=== PATIENT | female | born 1935 | race Caucasian/White ===

== ENCOUNTER → 2017-08-12 | Outpatient (CLI) | payer MEDICARE, BC ==
[2014-02-01 12:57] VITALS: BP 170/65
[~2017-08-12] MED LIST: BIOTIN5 MG; BIOTIN5 MG PO; BRILINTA90 MG PO; BYSTOLIC5 MG PO; CALCIUM + D 6001 TA1 PO; FLORINEF ACETA0.1 MG PO; GOOD SENSE ASPI81 M1 PO; LIPITOR10 MG PO; LISINOPRIL1 POW; MULTI VITAMINS1 TAB PO; NITROSTAT0.4 MG/TAB SL; OMEGA 31000 MG PO; OMEGA-31 SGL PO; RYTHMOL150 MG PO; SOTALOL PO; VITAMIN C500 MG PO
[2017-08-12 09:04] LABS: HEMATOCRIT 37.6 % (37.0-47.0); HEMOGLOBIN 12.1 g/dL (12.5-16.0); MEAN CELL VOLUME 96 fl (78-100); MEAN CORPUSCULAR HEMOGLOBIN 31 pg (27-31); MEAN CORPUSCULAR HGB CONC 32 g/dL (33-37); MEAN PLATELET VOLUME 9.3 fl (7.4-10.4); PLATELET COUNT 278 K/mm3 (130-400); RED BLOOD COUNT 3.93 M/mm3 (4.10-5.30); RED CELL DISTRIBUTION WIDTH 12.4 % (11.5-14.5); WHITE BLOOD COUNT 6.2 K/mm3 (4.8-10.8)
[2017-08-12 09:18] LABS: BUN/CREATININE RATIO 28.5 (6.0-26.0); CALCIUM 9.7 mg/dL (8.4-10.2); POTASSIUM 4.1 mmol/L (3.6-5.0)
[2017-08-12 09:27] LABS: LYMPHOCYTE 29 % (20-51); NEUTROPHILS 58 % (42-75)
[2017-08-12 09:28] LABS: MONOCYTE 9 % (3-10)
== END ==
LOC: LAB 08:41
PROVIDERS: Family Medicine
DX: E78.2 Mixed hyperlipidemia (principal)

== ENCOUNTER 2021-05-13 15:08 | Inpatient (IN) | payer MEDICARE, BC ==
[~2021-05-13] VITALS: Ht 160 cm; Wt 48.1 kg
[~2021-05-13 15:08] MED LIST changes: +CEFDINIR300 MG PO; +COZAAR25 M1 PO; +TOPROL XL 25MG25 MG PO
[2021-05-13 15:35] VITALS: BP 166/67
[2021-05-13 15:51] VITALS: BP 166/67
[2021-05-13 17:05] VITALS: BP 150/65
[2021-05-13 22:12] VITALS: BP 160/75
[2021-05-14 06:03] VITALS: BP 171/72
[2021-05-14 07:11] LABS: BASO # 0.02 K/mm3 (0.02-0.10); EOS # 0.18 K/mm3 (0.04-0.40); EOS % 1.8 % (1.0-5.0); HEMATOCRIT 31.9 % (37.0-47.0); HEMOGLOBIN 10.2 g/dL (12.5-16.0); LYMPH# 1.21 K/mm3 (1.50-4.00); MEAN CELL VOLUME 99 fl (78-100); MEAN CORPUSCULAR HEMOGLOBIN 32 pg (27-31); MEAN CORPUSCULAR HGB CONC 32 g/dL (33-37); MEAN PLATELET VOLUME 9.2 fl (7.4-10.4); MONO # 0.78 K/mm3 (0.20-0.80); NEU # 7.88 K/mm3 (1.40-6.50); PLATELET COUNT 159 K/mm3 (130-400); RED BLOOD COUNT 3.24 M/mm3 (4.10-5.30); RED CELL DISTRIBUTION WIDTH 13.3 % (11.5-14.5); WHITE BLOOD COUNT 10.1 K/mm3 (4.8-10.8)
[2021-05-14 08:20] LABS: URINE APPEARANCE CLEAR; URINE COLOR YELLOW
[2021-05-14 08:21] LABS: URINE BILIRUBIN NEGATIVE (NEGATIVE); URINE BLOOD 50 ery/uL (NEGATIVE); URINE GLUCOSE NEGATIVE (NEGATIVE); URINE KETONE NEGATIVE (NEGATIVE); URINE LEUKOCYTE ESTERASE TRACE (NEGATIVE); URINE MUCUS PRESENT (NOT PRESENT); URINE NITRATE NEGATIVE (NEGATIVE); URINE PROTEIN(semi-quant) TRACE (NEGATIVE); URINE UROBILINOGEN NORMAL (NORMAL)
[2021-05-14 10:10] VITALS: BP 128/67
== END 2021-05-14 10:47 | disposition home or self-care (01) | DRG 690 ==
LOC: MED/SURG 15:08
PROVIDERS: ADMIT Family Medicine
DX: N39.0 Urinary tract infection, site not specified (principal); I10 Essential (primary) hypertension; E78.5 Hyperlipidemia, unspecified; I25.10 Atherosclerotic heart disease of native coronary artery without angina pectoris; R41.0 Disorientation, unspecified; R05.9 Cough, unspecified; Z95.5 Presence of coronary angioplasty implant and graft; Z90.710 Acquired absence of both cervix and uterus; Z79.82 Long term (current) use of aspirin
CPT/HCPCS: J0696; J1650; J7030

== ENCOUNTER → 2021-05-19 | Outpatient (CLI) | payer MEDICARE, BC ==
[2021-05-19 10:33] LABS: BASO # 0.06 K/mm3 (0.02-0.10); EOS # 0.09 K/mm3 (0.04-0.40); HEMATOCRIT 39.9 % (37.0-47.0); HEMOGLOBIN 12.7 g/dL (12.5-16.0); LYMPH# 0.98 K/mm3 (1.50-4.00); MEAN CELL VOLUME 97 fl (78-100); MEAN CORPUSCULAR HEMOGLOBIN 31 pg (27-31); MEAN CORPUSCULAR HGB CONC 32 g/dL (33-37); MEAN PLATELET VOLUME 9.2 fl (7.4-10.4); MONO # 0.77 K/mm3 (0.20-0.80); NEU # 6.61 K/mm3 (1.40-6.50); PLATELET COUNT 318 K/mm3 (130-400); RED BLOOD COUNT 4.11 M/mm3 (4.10-5.30); RED CELL DISTRIBUTION WIDTH 12.4 % (11.5-14.5); WHITE BLOOD COUNT 8.6 K/mm3 (4.8-10.8)
[2021-05-19 11:40] LABS: URINE APPEARANCE HAZY; URINE BILIRUBIN NEGATIVE (NEGATIVE); URINE BLOOD TRACE (NEGATIVE); URINE COLOR DK YELLOW; URINE GLUCOSE NEGATIVE (NEGATIVE); URINE KETONE NEGATIVE (NEGATIVE); URINE LEUKOCYTE ESTERASE TRACE (NEGATIVE); URINE NITRATE NEGATIVE (NEGATIVE); URINE PROTEIN(semi-quant) TRACE (NEGATIVE); URINE UROBILINOGEN NORMAL (NORMAL)
[2021-05-19 22:45] LABS: FOLATE (FOLIC ACID) >20.0 ng/mL (2.0-20.0)
== END ==
LOC: LAB 10:00
PROVIDERS: Family Medicine
DX: N39.0 Urinary tract infection, site not specified (principal); D64.9 Anemia, unspecified

== ENCOUNTER → 2021-06-20 | Outpatient (CLI) | payer MEDICARE, BC ==
[2021-06-20 08:56] LABS: ALBUMIN 3.9 g/dL (3.4-4.8); POTASSIUM 4.1 mmol/L (3.5-5.1)
[2021-06-20 08:57] LABS: CALCIUM 9.8 mg/dL (8.3-10.5)
[2021-06-20 08:58] LABS: TOTAL PROTEIN 6.7 g/dL (6.2-8.1)
[2021-06-20 09:00] LABS: TOTAL BILIRUBIN 0.5 mg/dL (0.2-1.2)
[2021-06-21 00:03] LABS: FOLATE (FOLIC ACID) 17.5 ng/mL (2.0-20.0)
== END ==
LOC: LAB 08:14
PROVIDERS: Family Medicine
DX: Z00.00 Encounter for general adult medical examination without abnormal findings (principal); I10 Essential (primary) hypertension; H91.93 Unspecified hearing loss, bilateral

== ENCOUNTER → 2021-12-18 | Outpatient (CLI) | payer MEDICARE, BC ==
[2021-12-18 10:00] LABS: POTASSIUM 4.2 mmol/L (3.5-5.1)
[2021-12-18 10:01] LABS: CALCIUM 9.8 mg/dL (8.3-10.5)
== END ==
LOC: LAB 09:06
PROVIDERS: Family Medicine
DX: I10 Essential (primary) hypertension (principal)

== ENCOUNTER → 2021-12-27 | Outpatient (CLI) | payer MEDICARE, BC ==
[~2021-12-27] VITALS: Ht 160 cm; Wt 48.1 kg
[2021-12-27 16:12] VITALS: BP 142/70
[2021-12-27 17:05] VITALS: BP 128/71
== END ==
LOC: AMSURD 15:00
DX: U07.1 COVID-19 (principal); N18.30 Chronic kidney disease, stage 3 unspecified; I25.10 Atherosclerotic heart disease of native coronary artery without angina pectoris
CPT/HCPCS: M0222

== ENCOUNTER → 2021-12-27 | Outpatient (CLI) | payer MEDICARE, BC | LOC: LAB 13:36 | DX: U07.1 COVID-19 (principal) ==

== ENCOUNTER 2022-07-09 08:58 | Outpatient (RCR) | payer MEDICARE, BC | END 2022-08-03 | disposition home or self-care (01) | LOC: PT | DX: M54.6 Pain in thoracic spine (principal) ==

== ENCOUNTER 2023-10-07 12:40 | Emergency (ER) | payer MEDICARE, BC ==
[~2023-10-07 12:40] MED LIST changes: +fentaNYL 100 MCG/2 ML VIAL IV ONE
[2023-10-07] MEDS ORDERED: Iodixanol-320 100 ML BOTTLE IV ONE (14:10)
[2023-10-07] MEDS ORDERED: NS 60 ML IV ONE (14:10)
[2023-11-25 04:59] LABS: ALBUMIN 3.8 g/dL (3.4-4.8); ALT/SGPT 25 U/L (0-55); AST-SGOT 23 U/L (5-34); CALCIUM 9.7 mg/dL (8.3-10.5); CARBON DIOXIDE 23 mmol/L (23-31); GLUCOSE 99 mg/dL (65-105); SODIUM 143 mmol/L (136-145); TOTAL BILIRUBIN 0.6 mg/dL (0.2-1.2); TOTAL PROTEIN 6.2 g/dL (6.2-8.1); TROPONIN-I < 0.030 ng/mL (0.00-0.033)
[2023-11-25 05:15] LABS: BASO # 0.02 K/mm3 (0.02-0.10); EOS # 0.02 K/mm3 (0.04-0.40); EOS % 0.1 % (1.0-5.0); HEMATOCRIT 38.9 % (37.0-47.0); HEMOGLOBIN 12.5 g/dL (12.5-16.0); MEAN CELL VOLUME 98 fl (78-100); MEAN CORPUSCULAR HEMOGLOBIN 31 pg (27-31); MEAN CORPUSCULAR HGB CONC 32 g/dL (33-37); MEAN PLATELET VOLUME 9.4 fl (7.4-10.4); MONO # 1.17 K/mm3 (0.20-0.80); NEU # 11.92 K/mm3 (1.40-6.50); PLATELET COUNT 276 K/mm3 (130-400); RED BLOOD COUNT 3.99 M/mm3 (4.10-5.30); RED CELL DISTRIBUTION WIDTH 12.4 % (11.5-14.5); WHITE BLOOD COUNT 14.1 K/mm3 (4.8-10.8)
[2023-11-25 05:16] LABS: D-DIMER 32.91 mg/L FEU (0.15-0.50)
== END 2023-10-07 18:20 | disposition short-term general hospital (02) ==
LOC: ED 12:40
PROVIDERS: Physician Assistant
DX: S32.10XA Unspecified fracture of sacrum, initial encounter for closed fracture (principal); M25.552 Pain in left hip; M25.551 Pain in right hip; I48.0 Paroxysmal atrial fibrillation; W19.XXXA Unspecified fall, initial encounter
CPT/HCPCS: J3010; Q9967

== ENCOUNTER 2023-10-11 11:22 | Inpatient (IN) | payer MEDICARE, BC ==
[~2023-10-11] VITALS: Ht 162.6 cm; Wt 44.8 kg
[~2023-10-11 11:22] MED LIST changes: -fentaNYL 100 MCG/2 ML VIAL IV ONE
[2023-10-15] MEDS ORDERED: Bisacodyl 5 MG TAB PO PRN (03:15)
[2023-10-15] MEDS ORDERED: fentaNYL 100 MCG/2 ML VIAL IV PRN (03:15)
[2023-10-15] MEDS ORDERED: Acetaminophen 500 MG TAB PO PRN (03:15)
[2023-10-15] MEDS ORDERED: Polyethylene Glycol 3350 Powder 17 GM PACKET PO PRN (03:15)
[2023-10-15] MEDS ORDERED: Melatonin 3 MG TAB PO PRN (03:15)
[2023-10-15] MEDS ORDERED: Docusate Sodium 100 MG CAP PO PRN (03:15)
[2023-10-15] MEDS ORDERED: AMOXICILLIN AND1 TA2 PO (04:27)
[2023-10-15] MEDS ORDERED: ASPIRIN E.C. 8181 MG (04:28)
[2023-10-15] MEDS ORDERED: BETAPACE AF80 M1 PO (04:28)
[2023-10-15] MEDS ORDERED: FISH OIL1 IU PO (04:29)
[2023-10-15] MEDS ORDERED: CALCIUM 600 MG-1 TAB PO (04:29)
[2023-10-15] MEDS ORDERED: ATORVASTATIN CA10 MG PO (04:29)
[2023-10-15] MEDS ORDERED: WOMEN'S DAILY F1 TAB PO (04:30)
[2023-10-15] MEDS ORDERED: NATURE'S BLE1000 MCG PO (04:31)
[2023-10-15] MEDS ORDERED: MELATIN 3 MG-11 TAB PO (04:32)
[2023-10-15] MEDS ORDERED: VITAMIN C500 MG (04:32)
[2023-10-15] MEDS ORDERED: LIDOCAINE PAIN1 EACH TP (04:33)
[2023-10-15] MEDS ORDERED: ADVIL LIQUI-GE200 M1 PO (04:33)
[2023-10-15 05:39] VITALS: BP 205/81
[2023-10-15 06:30] VITALS: BP 166/76
[2023-10-15] MEDS ORDERED: Ascorbic Acid 500 MG TAB PO SCH (08:00)
[2023-10-15] MEDS ORDERED: Losartan 50 MG TAB PO SCH ×2 (09:00→21:00)
[2023-10-15] MEDS ORDERED: Omega-3 Fatty Acid Esters 1,000 MG CAP PO SCH (09:00)
[2023-10-15] MEDS ORDERED: Lidocaine 4% Topical Patch TP SCH (09:00)
[2023-10-15] MEDS ORDERED: Calcium Carb/Vit D3 500 mg-200 Units TAB PO SCH (09:00)
[2023-10-15] MEDS ORDERED: Ibuprofen 200 MG TAB PO SCH (09:00)
[2023-10-15] MEDS ORDERED: Multivitamin TAB PO SCH (12:00)
[2023-10-15] MEDS ORDERED: Acetaminophen 500 MG TAB PO SCH (13:00)
[2023-10-15 14:04] VITALS: BP 121/66
[2023-10-15 18:21] VITALS: BP 184/67
[2023-10-15] MEDS ORDERED: Polyethylene Glycol 3350 Powder 17 GM PACKET PO SCH (21:00)
[2023-10-16 04:30] VITALS: BP 216/93
[2023-10-16] MEDS ORDERED: cloNIDine 0.1 MG TAB PO ONE (04:30)
[2023-10-16] MEDS ORDERED: fentaNYL 100 MCG/2 ML VIAL IM ONE (04:30)
[2023-10-16] MEDS ORDERED: hydrALAZINE 10 MG TAB PO ONE (04:45)
[2023-10-16 05:23] VITALS: BP 171/78
[2023-10-16 05:54] VITALS: BP 179/72
[2023-10-16 07:09] LABS: BASO # 0.07 K/mm3 (0.02-0.10); EOS # 0.28 K/mm3 (0.04-0.40); EOS % 3.3 % (1.0-5.0); HEMOGLOBIN 11.1 g/dL (12.5-16.0); LYMPH# 1.27 K/mm3 (1.50-4.00); MEAN CELL VOLUME 98 fl (78-100); MEAN CORPUSCULAR HEMOGLOBIN 32 pg (27-31); MEAN CORPUSCULAR HGB CONC 33 g/dL (33-37); MEAN PLATELET VOLUME 8.8 fl (7.4-10.4); MONO # 0.78 K/mm3 (0.20-0.80); NEU # 6.15 K/mm3 (1.40-6.50); PLATELET COUNT 318 K/mm3 (130-400); RED BLOOD COUNT 3.48 M/mm3 (4.10-5.30); RED CELL DISTRIBUTION WIDTH 12.7 % (11.5-14.5); WHITE BLOOD COUNT 8.6 K/mm3 (4.8-10.8)
[2023-10-16 07:51] LABS: ALBUMIN 3.1 g/dL (3.4-4.8)
[2023-10-16 07:53] LABS: CALCIUM 8.6 mg/dL (8.3-10.5)
[2023-10-16 07:54] LABS: TOTAL PROTEIN 5.4 g/dL (6.2-8.1)
[2023-10-16 07:56] LABS: TOTAL BILIRUBIN 0.5 mg/dL (0.2-1.2)
[2023-10-16 08:29] VITALS: BP 119/69
[2023-10-16] MEDS ORDERED: Ketorolac 10 MG TAB PO PRN (10:00)
[2023-10-16] MEDS ORDERED: traMADol 50 MG TAB PO PRN (10:15)
[2023-10-16 17:13] VITALS: BP 149/79
[2023-10-17] MEDS ORDERED: traMADol 50 MG TAB PO SCH
[2023-10-17 04:30] VITALS: BP 197/73
[2023-10-17 04:40] VITALS: BP 203/99
[2023-10-17] MEDS ORDERED: fentaNYL 100 MCG/2 ML VIAL IM ONE (04:45)
[2023-10-17 05:46] VITALS: BP 177/70
[2023-10-17 15:12] VITALS: BP 157/78
[2023-10-17 17:09] VITALS: BP 164/78
[2023-10-17 20:27] VITALS: BP 178/78
[2023-10-18 06:02] VITALS: BP 190/96
[2023-10-18 06:06] VITALS: BP 180/82
[2023-10-18 17:58] VITALS: BP 125/74
[2023-10-18] MEDS ORDERED: traMADol 50 MG TAB PO SCH (18:00)
[2023-10-19] MEDS ORDERED: Polyethylene Glycol 3350 Powder 17 GM PACKET PO PRN (04:40)
[2023-10-19] MEDS ORDERED: Docusate Sodium 100 MG CAP PO SCH ×2 (04:43→21:00)
[2023-10-19 06:25] VITALS: BP 194/76
[2023-10-19] MEDS ORDERED: Losartan 50 MG TAB PO SCH (09:00)
[2023-10-19 11:32] LABS: URINE APPEARANCE CLOUDY (CLEAR); URINE BILIRUBIN NEGATIVE (NEGATIVE); URINE COLOR YELLOW (YELLOW); URINE GLUCOSE NEGATIVE (NEGATIVE); URINE KETONE NEGATIVE (NEGATIVE); URINE PROTEIN(semi-quant) 2+ (NEGATIVE)
[2023-10-19 11:33] LABS: URINE BLOOD 3+ (NEGATIVE); URINE LEUKOCYTE ESTERASE 3+ (NEGATIVE); URINE NITRATE NEGATIVE (NEGATIVE); URINE WBC >50 /hpf (0-3)
[2023-10-19] MEDS ORDERED: cefTRIAXone 1 G in Water For Injection,Sterile 10 ML IV SCH (15:45)
[2023-10-19 18:00] VITALS: BP 130/70
[2023-10-20 04:38] VITALS: BP 190/85
[2023-10-20 18:04] VITALS: BP 188/77
[2023-10-21] MEDS ORDERED: fentaNYL 100 MCG/2 ML VIAL IV ONE (04:00)
[2023-10-21 04:45] VITALS: BP 208/94
[2023-10-21] MEDS ORDERED: cloNIDine 0.1 MG TAB PO ONE (05:00)
[2023-10-21 05:44] VITALS: BP 184/74
[2023-10-21 17:35] VITALS: BP 125/61
[2023-10-22 03:16] VITALS: BP 213/101
[2023-10-22] MEDS ORDERED: hydrALAZINE 10 MG TAB PO ONE (03:30)
[2023-10-22] MEDS ORDERED: fentaNYL 100 MCG/2 ML VIAL IV ONE (04:00)
[2023-10-22 05:47] VITALS: BP 189/92
[2023-10-22 07:10] LABS: BASO # 0.04 K/mm3 (0.02-0.10); EOS # 0.41 K/mm3 (0.04-0.40); EOS % 4.4 % (1.0-5.0); HEMATOCRIT 32.9 % (37.0-47.0); HEMOGLOBIN 10.6 g/dL (12.5-16.0); LYMPH# 1.65 K/mm3 (1.50-4.00); MEAN CELL VOLUME 99 fl (78-100); MEAN CORPUSCULAR HEMOGLOBIN 32 pg (27-31); MEAN CORPUSCULAR HGB CONC 32 g/dL (33-37); MEAN PLATELET VOLUME 8.9 fl (7.4-10.4); MONO # 1.09 K/mm3 (0.20-0.80); NEU # 6.13 K/mm3 (1.40-6.50); PLATELET COUNT 413 K/mm3 (130-400); RED BLOOD COUNT 3.32 M/mm3 (4.10-5.30); RED CELL DISTRIBUTION WIDTH 13.5 % (11.5-14.5); WHITE BLOOD COUNT 9.4 K/mm3 (4.8-10.8)
[2023-10-22 07:16] LABS: ALBUMIN 3.2 g/dL (3.4-4.8)
[2023-10-22 07:17] LABS: CALCIUM 8.9 mg/dL (8.3-10.5)
[2023-10-22 07:18] LABS: TOTAL PROTEIN 5.8 g/dL (6.2-8.1)
[2023-10-22 07:20] LABS: TOTAL BILIRUBIN 0.2 mg/dL (0.2-1.2)
[2023-10-22 13:46] VITALS: BP 156/71
[2023-10-22 14:18] LABS: PH-URINE 5.5 (5.0 - 8.0); URINE APPEARANCE SLIGHTLY CLOUDY (CLEAR); URINE BILIRUBIN NEGATIVE (NEGATIVE); URINE BLOOD NEGATIVE (NEGATIVE); URINE COLOR YELLOW (YELLOW); URINE GLUCOSE NEGATIVE (NEGATIVE); URINE KETONE NEGATIVE (NEGATIVE); URINE LEUKOCYTE ESTERASE TRACE (NEGATIVE); URINE NITRATE NEGATIVE (NEGATIVE); URINE PROTEIN(semi-quant) NEGATIVE (NEGATIVE); URINE WBC 31-50 /hpf (0-3)
[2023-10-22 17:58] VITALS: BP 171/83
[2023-10-23 05:23] VITALS: BP 158/72
[2023-10-23 16:58] VITALS: BP 138/68
[2023-10-23] MEDS ORDERED: Melatonin 3 MG TAB PO SCH (21:00)
[2023-10-24 05:23] VITALS: BP 171/77
[2023-10-24 17:40] VITALS: BP 171/73
[2023-10-25 05:30] VITALS: BP 122/61
[2023-10-25 16:16] VITALS: BP 120/64
[2023-10-25] MEDS ORDERED: Melatonin 3 MG TAB PO SCH (21:00)
[2023-10-26 05:35] VITALS: BP 147/74
[2023-10-26 16:56] VITALS: BP 126/65
[2023-10-27 06:01] VITALS: BP 178/80
[2023-10-27 18:00] VITALS: BP 127/65
[2023-10-27] MEDS ORDERED: Melatonin 3 MG TAB PO SCH (18:00)
[2023-10-27 18:38] VITALS: BP 192/64
[2023-10-28 06:05] VITALS: BP 133/66
[2023-10-28 18:09] VITALS: BP 106/61
[2023-10-29 05:52] VITALS: BP 185/75
[2023-10-29 07:37] LABS: BASO # 0.03 K/mm3 (0.02-0.10); EOS % 2.9 % (1.0-5.0); HEMATOCRIT 30.9 % (37.0-47.0); HEMOGLOBIN 10.3 g/dL (12.5-16.0); LYMPH# 0.85 K/mm3 (1.50-4.00); MEAN CELL VOLUME 97 fl (78-100); MEAN CORPUSCULAR HEMOGLOBIN 32 pg (27-31); MEAN CORPUSCULAR HGB CONC 33 g/dL (33-37); MEAN PLATELET VOLUME 8.9 fl (7.4-10.4); MONO # 1.28 K/mm3 (0.20-0.80); NEU # 7.55 K/mm3 (1.40-6.50); PLATELET COUNT 376 K/mm3 (130-400); RED CELL DISTRIBUTION WIDTH 13.9 % (11.5-14.5); WHITE BLOOD COUNT 10.4 K/mm3 (4.8-10.8)
[2023-10-29 07:39] LABS: ALBUMIN 2.9 g/dL (3.4-4.8)
[2023-10-29 07:41] LABS: CALCIUM 8.8 mg/dL (8.3-10.5)
[2023-10-29 07:42] LABS: TOTAL PROTEIN 5.7 g/dL (6.2-8.1)
[2023-10-29 07:44] LABS: TOTAL BILIRUBIN 0.3 mg/dL (0.2-1.2)
[2023-10-29] MEDS ORDERED: tiZANidine 4 MG TABLET PO PRN (16:15)
[2023-10-29] MEDS ORDERED: Acetaminophen 500 MG TAB PO SCH (17:00)
[2023-10-29 17:39] VITALS: BP 138/68
[2023-10-29] MEDS ORDERED: traMADol 50 MG TAB PO SCH (18:00)
[2023-10-30 06:01] VITALS: BP 195/78
[2023-10-30] MEDS ORDERED: Meloxicam 7.5 MG TAB PO SCH (09:00)
[2023-10-30 15:44] LABS: HEMATOCRIT 30.7 % (37.0-47.0); HEMOGLOBIN 9.9 g/dL (12.5-16.0)
[2023-10-30 17:52] VITALS: BP 188/84
[2023-10-30] MEDS ORDERED: Ferrous Sulfate 325 MG TAB PO SCH (18:00)
[2023-10-31 05:55] VITALS: BP 206/81
[2023-10-31 06:59] LABS: BASO # 0.04 K/mm3 (0.02-0.10); EOS # 0.47 K/mm3 (0.04-0.40); EOS % 4.9 % (1.0-5.0); HEMATOCRIT 31.9 % (37.0-47.0); HEMOGLOBIN 10.2 g/dL (12.5-16.0); LYMPH# 1.18 K/mm3 (1.50-4.00); MEAN CELL VOLUME 99 fl (78-100); MEAN CORPUSCULAR HEMOGLOBIN 32 pg (27-31); MEAN CORPUSCULAR HGB CONC 32 g/dL (33-37); MEAN PLATELET VOLUME 8.8 fl (7.4-10.4); MONO # 1.12 K/mm3 (0.20-0.80); NEU # 6.48 K/mm3 (1.40-6.50); PLATELET COUNT 383 K/mm3 (130-400); RED BLOOD COUNT 3.22 M/mm3 (4.10-5.30); RED CELL DISTRIBUTION WIDTH 13.9 % (11.5-14.5); WHITE BLOOD COUNT 9.7 K/mm3 (4.8-10.8)
[2023-10-31 18:00] VITALS: BP 192/68
[2023-11-01 05:40] VITALS: BP 187/90
[2023-11-01 17:45] VITALS: BP 157/84
[2023-11-01 18:23] LABS: URINE APPEARANCE CLEAR (CLEAR); URINE COLOR YELLOW (YELLOW)
[2023-11-01 18:24] LABS: URINE BILIRUBIN NEGATIVE (NEGATIVE); URINE BLOOD 2+ (NEGATIVE); URINE GLUCOSE NEGATIVE (NEGATIVE); URINE KETONE NEGATIVE (NEGATIVE); URINE NITRATE NEGATIVE (NEGATIVE); URINE PROTEIN(semi-quant) NEGATIVE (NEGATIVE)
[2023-11-01 18:25] LABS: URINE LEUKOCYTE ESTERASE 2+ (NEGATIVE)
[2023-11-01] MEDS ORDERED: tiZANidine 4 MG TABLET PO SCH (21:00)
[2023-11-02 05:54] VITALS: BP 195/77; BP_SYST 194
[2023-11-02] MEDS ORDERED: Nitrofurantoin (Mono/Macro) 100 MG CAPSULE PO SCH (08:00)
[2023-11-02 17:14] VITALS: BP 158/71
[2023-11-03 06:19] VITALS: BP 196/73
[2023-11-03 17:06] VITALS: BP 173/87
[2023-11-04 05:28] VITALS: BP 194/95
[2023-11-04] MEDS ORDERED: amLODIPine 5 MG TAB PO SCH (06:51)
[2023-11-04] MEDS ORDERED: Melatonin 3 MG TAB PO PRN (10:43)
[2023-11-04 11:15] VITALS: BP 151/67
[2023-11-04 17:11] VITALS: BP 186/99
[2023-11-04] MEDS ORDERED: hydrALAZINE 10 MG TAB PO PRN (18:30)
[2023-11-05 05:49] LABS: BASO # 0.04 K/mm3 (0.02-0.10); EOS # 0.42 K/mm3 (0.04-0.40); EOS % 3.4 % (1.0-5.0); HEMOGLOBIN 10.6 g/dL (12.5-16.0); LYMPH# 1.12 K/mm3 (1.50-4.00); MEAN CELL VOLUME 99 fl (78-100); MEAN CORPUSCULAR HEMOGLOBIN 32 pg (27-31); MEAN CORPUSCULAR HGB CONC 32 g/dL (33-37); MEAN PLATELET VOLUME 8.6 fl (7.4-10.4); MONO # 1.31 K/mm3 (0.20-0.80); NEU # 9.49 K/mm3 (1.40-6.50); PLATELET COUNT 443 K/mm3 (130-400); RED BLOOD COUNT 3.35 M/mm3 (4.10-5.30); RED CELL DISTRIBUTION WIDTH 13.6 % (11.5-14.5); WHITE BLOOD COUNT 12.5 K/mm3 (4.8-10.8)
[2023-11-05 06:03] VITALS: BP 189/78
[2023-11-05 08:45] VITALS: BP 113/60
[2023-11-05 14:05] VITALS: BP 150/79
[2023-11-05 17:18] VITALS: BP 134/73
[2023-11-05 22:12] VITALS: BP 137/66
[2023-11-06] VITALS (8 sets, daily range): BP systolic 104–193; BP diastolic 59–83
[2023-11-06 13:40] LABS: ALBUMIN 3.4 g/dL (3.4-4.8)
[2023-11-06 13:43] LABS: TOTAL PROTEIN 6.2 g/dL (6.2-8.1)
[2023-11-06 13:45] LABS: TOTAL BILIRUBIN 0.3 mg/dL (0.2-1.2)
[2023-11-06 14:06] LABS: BASO # 0.05 K/mm3 (0.02-0.10); EOS # 0.27 K/mm3 (0.04-0.40); EOS % 2.3 % (1.0-5.0); HEMATOCRIT 32.7 % (37.0-47.0); HEMOGLOBIN 10.4 g/dL (12.5-16.0); LYMPH# 1.07 K/mm3 (1.50-4.00); MEAN CELL VOLUME 99 fl (78-100); MEAN CORPUSCULAR HEMOGLOBIN 32 pg (27-31); MEAN CORPUSCULAR HGB CONC 32 g/dL (33-37); MEAN PLATELET VOLUME 8.8 fl (7.4-10.4); NEU # 8.87 K/mm3 (1.40-6.50); PLATELET COUNT 485 K/mm3 (130-400); RED BLOOD COUNT 3.29 M/mm3 (4.10-5.30); RED CELL DISTRIBUTION WIDTH 13.7 % (11.5-14.5); WHITE BLOOD COUNT 11.9 K/mm3 (4.8-10.8)
[2023-11-06] MEDS ORDERED: tiZANidine 4 MG TABLET PO PRN (14:45)
[2023-11-07 02:07] VITALS: BP 134/83
[2023-11-07 05:33] VITALS: BP 167/78
[2023-11-07 10:32] VITALS: BP 116/66
[2023-11-07 14:15] VITALS: BP 149/74
[2023-11-07 18:01] VITALS: BP 126/62
[2023-11-07 21:24] VITALS: BP 154/74
[2023-11-08 02:23] VITALS: BP 152/65
[2023-11-08 05:27] VITALS: BP 185/78
[2023-11-08 10:12] VITALS: BP 103/61
[2023-11-08 14:32] VITALS: BP 160/80
[2023-11-08 18:00] VITALS: BP 131/72
[2023-11-08 21:57] VITALS: BP 165/75
[2023-11-09 01:14] VITALS: BP 149/77
[2023-11-09 06:13] VITALS: BP 170/72; BP_SYST 178
[2023-11-09 09:46] VITALS: BP 130/72
[2023-11-09 14:06] VITALS: BP 161/79
[2023-11-09 18:16] VITALS: BP 135/65
[2023-11-09 22:52] VITALS: BP 151/75
[2023-11-10 02:34] VITALS: BP 113/70; BP 147/65
[2023-11-10 06:23] VITALS: BP 152/73
[2023-11-10 10:00] VITALS: BP 132/68
[2023-11-10 14:00] VITALS: BP 152/59
[2023-11-10 18:00] VITALS: BP 161/71
[2023-11-10 22:02] VITALS: BP 166/74
[2023-11-11 02:56] VITALS: BP 177/79
[2023-11-11 02:57] LABS: URINE APPEARANCE CLOUDY (CLEAR); URINE COLOR YELLOW (YELLOW)
[2023-11-11 03:08] LABS: URINE BILIRUBIN NEGATIVE (NEGATIVE); URINE BLOOD 2+ (NEGATIVE); URINE GLUCOSE NEGATIVE (NEGATIVE); URINE KETONE NEGATIVE (NEGATIVE); URINE LEUKOCYTE ESTERASE 3+ (NEGATIVE); URINE NITRATE POSITIVE (NEGATIVE); URINE PROTEIN(semi-quant) TRACE (NEGATIVE); URINE WBC >50 /hpf (0-3)
[2023-11-11 05:44] VITALS: BP 169/71
[2023-11-11] MEDS ORDERED: Cephalexin 250 MG CAP PO SCH (09:00)
[2023-11-11 09:55] VITALS: BP 102/61
[2023-11-11] MEDS ORDERED: traMADol 50 MG TAB PO SCH (12:00)
[2023-11-11 14:00] VITALS: BP 159/61
[2023-11-11 17:14] VITALS: BP 176/76
[2023-11-11 21:40] VITALS: BP 171/78
[2023-11-12] VITALS (7 sets, daily range): BP systolic 105–182; BP diastolic 62–78
[2023-11-12 09:23] LABS: BASO # 0.06 K/mm3 (0.02-0.10); EOS # 0.42 K/mm3 (0.04-0.40); EOS % 4.3 % (1.0-5.0); HEMATOCRIT 32.5 % (37.0-47.0); HEMOGLOBIN 10.4 g/dL (12.5-16.0); LYMPH# 1.13 K/mm3 (1.50-4.00); MEAN CELL VOLUME 99 fl (78-100); MEAN CORPUSCULAR HEMOGLOBIN 32 pg (27-31); MEAN CORPUSCULAR HGB CONC 32 g/dL (33-37); MEAN PLATELET VOLUME 8.3 fl (7.4-10.4); MONO # 1.28 K/mm3 (0.20-0.80); NEU # 6.57 K/mm3 (1.40-6.50); PLATELET COUNT 490 K/mm3 (130-400); RED BLOOD COUNT 3.29 M/mm3 (4.10-5.30); RED CELL DISTRIBUTION WIDTH 13.5 % (11.5-14.5); WHITE BLOOD COUNT 9.8 K/mm3 (4.8-10.8)
[2023-11-12 09:31] LABS: ALBUMIN 3.2 g/dL (3.4-4.8)
[2023-11-12 09:34] LABS: TOTAL PROTEIN 6.1 g/dL (6.2-8.1)
[2023-11-12 09:36] LABS: TOTAL BILIRUBIN 0.2 mg/dL (0.2-1.2)
[2023-11-13 05:42] VITALS: BP 182/82
[2023-11-13 09:58] VITALS: BP 174/73
[2023-11-13 14:28] VITALS: BP 169/77
[2023-11-13 17:31] VITALS: BP 146/72
[2023-11-13 21:54] VITALS: BP 182/81
[2023-11-14 01:42] VITALS: BP 169/75
[2023-11-14 05:35] VITALS: BP 180/79
[2023-11-14] MEDS ORDERED: amLODIPine 5 MG TAB PO ONE (09:00)
[2023-11-14 10:15] VITALS: BP 155/83
[2023-11-14 14:09] VITALS: BP 135/84
[2023-11-14 17:58] VITALS: BP 127/76
[2023-11-14] MEDS ORDERED: amLODIPine 5 MG TAB PO SCH (21:00)
[2023-11-14 23:09] VITALS: BP 180/71
[2023-11-15] VITALS (7 sets, daily range): BP systolic 93–188; BP diastolic 58–81
[2023-11-15] MEDS ORDERED: hydrALAZINE 10 MG TAB PO PRN (09:47)
[2023-11-16] VITALS (10 sets, daily range): BP systolic 95–180; BP diastolic 57–84
[2023-11-16 11:06] LABS: BASO # 0.08 K/mm3 (0.02-0.10); EOS # 0.27 K/mm3 (0.04-0.40); EOS % 2.4 % (1.0-5.0); HEMATOCRIT 33.7 % (37.0-47.0); HEMOGLOBIN 10.8 g/dL (12.5-16.0); LYMPH# 1.47 K/mm3 (1.50-4.00); MEAN CELL VOLUME 99 fl (78-100); MEAN CORPUSCULAR HEMOGLOBIN 32 pg (27-31); MEAN CORPUSCULAR HGB CONC 32 g/dL (33-37); MEAN PLATELET VOLUME 8.1 fl (7.4-10.4); NEU # 7.49 K/mm3 (1.40-6.50); PLATELET COUNT 434 K/mm3 (130-400); RED BLOOD COUNT 3.41 M/mm3 (4.10-5.30); RED CELL DISTRIBUTION WIDTH 13.7 % (11.5-14.5); WHITE BLOOD COUNT 11.2 K/mm3 (4.8-10.8)
[2023-11-16 11:16] LABS: ALBUMIN 3.4 g/dL (3.4-4.8)
[2023-11-16 11:17] LABS: CALCIUM 9.4 mg/dL (8.3-10.5)
[2023-11-16 11:19] LABS: TOTAL PROTEIN 6.3 g/dL (6.2-8.1)
[2023-11-16 11:20] LABS: TOTAL BILIRUBIN 0.3 mg/dL (0.2-1.2)
[2023-11-17 01:48] VITALS: BP 125/91
[2023-11-17 05:29] VITALS: BP 191/75
[2023-11-17 10:45] VITALS: BP 94/60
[2023-11-17 13:56] VITALS: BP 135/75
[2023-11-17 17:31] VITALS: BP 148/83
[2023-11-17 22:27] VITALS: BP 160/76
[2023-11-18] VITALS (7 sets, daily range): BP systolic 115–186; BP diastolic 63–92
[2023-11-18 16:00] LABS: HEMATOCRIT 31.4 % (37.0-47.0); HEMOGLOBIN 10.2 g/dL (12.5-16.0); MEAN CELL VOLUME 97 fl (78-100); MEAN CORPUSCULAR HEMOGLOBIN 32 pg (27-31); MEAN CORPUSCULAR HGB CONC 33 g/dL (33-37); MEAN PLATELET VOLUME 8.3 fl (7.4-10.4); PLATELET COUNT 375 K/mm3 (130-400); RED BLOOD COUNT 3.23 M/mm3 (4.10-5.30); RED CELL DISTRIBUTION WIDTH 13.7 % (11.5-14.5); WHITE BLOOD COUNT 9.4 K/mm3 (4.8-10.8)
[2023-11-18 16:14] LABS: ALBUMIN 3.4 g/dL (3.4-4.8)
[2023-11-18 16:15] LABS: CALCIUM 9.2 mg/dL (8.3-10.5)
[2023-11-18 16:16] LABS: TOTAL PROTEIN 6.1 g/dL (6.2-8.1)
[2023-11-18 16:18] LABS: TOTAL BILIRUBIN 0.2 mg/dL (0.2-1.2)
[2023-11-18 16:25] LABS: LYMPHOCYTE 17 % (20-51); METAMYELOCYTE 1 % (0-0); MONOCYTE 16 % (3-10); NEUTROPHILS 59 % (42-75)
[2023-11-18 16:26] LABS: BAND 3 % (0-10)
[2023-11-18 16:27] LABS: HYPOCHROMIA 1+
[2023-11-18 16:28] LABS: SCHISTOCYTES 1+
[2023-11-18 17:27] LABS: URINE APPEARANCE CLEAR (CLEAR); URINE BILIRUBIN NEGATIVE (NEGATIVE); URINE COLOR YELLOW (YELLOW); URINE GLUCOSE NEGATIVE (NEGATIVE); URINE KETONE NEGATIVE (NEGATIVE); URINE PROTEIN(semi-quant) NEGATIVE (NEGATIVE)
[2023-11-18 17:28] LABS: URINE BLOOD TRACE-LYSED (NEGATIVE); URINE LEUKOCYTE ESTERASE TRACE (NEGATIVE); URINE NITRATE NEGATIVE (NEGATIVE)
[2023-11-18 17:33] LABS: URINE WBC 16-30 /hpf (0-3)
[2023-11-19 02:39] VITALS: BP 197/85
[2023-11-19 05:35] VITALS: BP 123/70
[2023-11-19 17:49] VITALS: BP 126/80
[2023-11-19 19:04] LABS: BASO # 0.06 K/mm3 (0.02-0.10); EOS # 0.21 K/mm3 (0.04-0.40); EOS % 2.4 % (1.0-5.0); HEMATOCRIT 32.5 % (37.0-47.0); HEMOGLOBIN 10.2 g/dL (12.5-16.0); LYMPH# 2.01 K/mm3 (1.50-4.00); MEAN CELL VOLUME 99 fl (78-100); MEAN CORPUSCULAR HEMOGLOBIN 31 pg (27-31); MEAN CORPUSCULAR HGB CONC 31 g/dL (33-37); MEAN PLATELET VOLUME 8.4 fl (7.4-10.4); MONO # 1.39 K/mm3 (0.20-0.80); NEU # 4.78 K/mm3 (1.40-6.50); PLATELET COUNT 380 K/mm3 (130-400); RED BLOOD COUNT 3.27 M/mm3 (4.10-5.30); RED CELL DISTRIBUTION WIDTH 13.9 % (11.5-14.5); WHITE BLOOD COUNT 8.6 K/mm3 (4.8-10.8)
[2023-11-19 19:11] LABS: ALBUMIN 3.5 g/dL (3.4-4.8); SODIUM 137 mmol/L (136-145)
[2023-11-19 19:13] LABS: CALCIUM 9.7 mg/dL (8.3-10.5)
[2023-11-19 19:14] LABS: GLUCOSE 112 mg/dL (65-105); TOTAL PROTEIN 6.3 g/dL (6.2-8.1)
[2023-11-19 19:15] LABS: CARBON DIOXIDE 23 mmol/L (23-31)
[2023-11-19 19:16] LABS: TOTAL BILIRUBIN 0.2 mg/dL (0.2-1.2)
[2023-11-19 19:19] LABS: AST-SGOT 15 U/L (5-34)
[2023-11-19 19:20] LABS: ALT/SGPT 14 U/L (0-55)
[2023-11-19 19:26] LABS: TROPONIN-I < 0.030 ng/mL (0.00-0.033)
[2023-11-20 05:29] VITALS: BP 170/83
[2023-11-20 17:39] VITALS: BP 160/80
[2023-11-21 05:25] VITALS: BP 102/64
[2023-11-21 05:27] VITALS: BP 161/76
[2023-11-21 17:37] VITALS: BP 182/79
[2023-11-22 05:46] VITALS: BP 171/76
[2023-11-22 16:50] VITALS: BP 188/77
[2023-11-23 05:23] VITALS: BP 186/78
[2023-11-23 18:00] VITALS: BP 112/72
[2023-11-24 06:05] VITALS: BP 192/94
[2023-11-24 06:06] VITALS: BP 177/91
[2023-11-24 17:19] VITALS: BP 187/80
[2023-11-25 05:38] VITALS: BP 167/78
[2023-11-25 18:00] VITALS: BP 117/71
[2023-11-25] MEDS ORDERED: Metoprolol Tartrate 25 MG TAB PO SCH (21:00)
[2023-11-25] MEDS ORDERED: Losartan 25 MG TAB PO SCH (21:00)
[2023-11-26 05:34] VITALS: BP 177/68
[2023-11-26 14:56] LABS: BASO # 0.05 K/mm3 (0.02-0.10); EOS # 0.15 K/mm3 (0.04-0.40); HEMATOCRIT 34.5 % (37.0-47.0); HEMOGLOBIN 10.8 g/dL (12.5-16.0); LYMPH# 1.84 K/mm3 (1.50-4.00); MEAN CELL VOLUME 101 fl (78-100); MEAN CORPUSCULAR HEMOGLOBIN 32 pg (27-31); MEAN CORPUSCULAR HGB CONC 31 g/dL (33-37); MEAN PLATELET VOLUME 8.9 fl (7.4-10.4); MONO # 1.25 K/mm3 (0.20-0.80); NEU # 4.13 K/mm3 (1.40-6.50); PLATELET COUNT 389 K/mm3 (130-400); RED BLOOD COUNT 3.42 M/mm3 (4.10-5.30); RED CELL DISTRIBUTION WIDTH 14.4 % (11.5-14.5); WHITE BLOOD COUNT 7.5 K/mm3 (4.8-10.8)
[2023-11-26 15:02] LABS: ALBUMIN 3.6 g/dL (3.4-4.8)
[2023-11-26 15:03] LABS: CALCIUM 9.5 mg/dL (8.3-10.5)
[2023-11-26 15:04] LABS: TOTAL PROTEIN 6.5 g/dL (6.2-8.1)
[2023-11-26 15:06] LABS: TOTAL BILIRUBIN 0.2 mg/dL (0.2-1.2)
[2023-11-26 17:44] VITALS: BP 127/81
[2023-11-27 05:20] VITALS: BP 131/71
[2023-11-27 17:36] VITALS: BP 162/84
[2023-11-27 20:30] VITALS: BP 164/71
[2023-11-28 05:36] VITALS: BP 112/68
[2023-11-28] MEDS ORDERED: traMADol 50 MG TAB PO PRN (13:15)
[2023-11-28 17:03] VITALS: BP 137/87
[2023-11-28] MEDS ORDERED: traMADol 50 MG TAB PO SCH (21:00)
[2023-11-29 05:40] VITALS: BP 151/73
[2023-11-29 08:10] LABS: CALCIUM 9.4 mg/dL (8.3-10.5)
[2023-11-29 17:16] VITALS: BP 110/64
[2023-11-30 05:31] VITALS: BP 136/75
[2023-11-30 18:07] VITALS: BP 181/94
[2023-12-01 06:13] VITALS: BP 128/82
[2023-12-01 17:52] VITALS: BP 124/74
[2023-12-02 05:53] VITALS: BP 165/74
[2023-12-02] MEDS ORDERED: traMADol 50 MG TAB PO PRN (07:17)
[2023-12-02 17:04] VITALS: BP 168/72
[2023-12-03 05:58] LABS: BASO # 0.04 K/mm3 (0.02-0.10); EOS # 0.19 K/mm3 (0.04-0.40); HEMATOCRIT 34.1 % (37.0-47.0); HEMOGLOBIN 10.9 g/dL (12.5-16.0); LYMPH# 1.92 K/mm3 (1.50-4.00); MEAN CELL VOLUME 100 fl (78-100); MEAN CORPUSCULAR HEMOGLOBIN 32 pg (27-31); MEAN CORPUSCULAR HGB CONC 32 g/dL (33-37); MEAN PLATELET VOLUME 9.1 fl (7.4-10.4); MONO # 1.01 K/mm3 (0.20-0.80); NEU # 3.24 K/mm3 (1.40-6.50); PLATELET COUNT 349 K/mm3 (130-400); RED BLOOD COUNT 3.42 M/mm3 (4.10-5.30); RED CELL DISTRIBUTION WIDTH 14.6 % (11.5-14.5); WHITE BLOOD COUNT 6.4 K/mm3 (4.8-10.8)
[2023-12-03 06:04] LABS: CALCIUM 9.5 mg/dL (8.3-10.5)
[2023-12-03 06:18] VITALS: BP 131/67
[2023-12-03 12:00] LABS: ALBUMIN 3.1 g/dL (3.4-4.8); CALCIUM 8.5 mg/dL (8.3-10.5); TOTAL BILIRUBIN 0.5 mg/dL (0.2-1.2); TOTAL PROTEIN 5.5 g/dL (6.2-8.1)
[2023-12-03 12:04] LABS: BASO # 0.03 K/mm3 (0.02-0.10); EOS % 2.2 % (1.0-5.0); HEMATOCRIT 33.7 % (37.0-47.0); HEMOGLOBIN 11.2 g/dL (12.5-16.0); MEAN CELL VOLUME 96 fl (78-100); MEAN CORPUSCULAR HEMOGLOBIN 32 pg (27-31); MEAN CORPUSCULAR HGB CONC 33 g/dL (33-37); MEAN PLATELET VOLUME 9.1 fl (7.4-10.4); MONO # 1.22 K/mm3 (0.20-0.80); NEU # 6.42 K/mm3 (1.40-6.50); PLATELET COUNT 251 K/mm3 (130-400); RED BLOOD COUNT 3.52 M/mm3 (4.10-5.30); RED CELL DISTRIBUTION WIDTH 12.6 % (11.5-14.5); WHITE BLOOD COUNT 9.2 K/mm3 (4.8-10.8)
[2023-12-03 18:05] VITALS: BP 117/80
[2023-12-04 06:05] VITALS: BP 171/69
[2023-12-04 16:19] VITALS: BP 155/75
[2023-12-05 06:18] VITALS: BP 142/65
[2023-12-05] MEDS ORDERED: TRAMADOL 50 MG TAB PO (07:50)
[2023-12-05] MEDS ORDERED: BETAPACE AF80 M1 PO (09:25)
[2023-12-05] MEDS ORDERED: LIDOCAINE PAIN1 EACH TP (09:25)
[2023-12-05] MEDS ORDERED: BETAPACE80 M1 PO (14:28)
== END 2023-12-05 09:45 | disposition home health service (06) | DRG 561 ==
LOC: MED/SURG 11:22
PROVIDERS: Family Medicine; Physician Assistant; ADMIT Internal Medicine
DX: S32.10XD Unspecified fracture of sacrum, subsequent encounter for fracture with routine healing (principal); I35.0 Nonrheumatic aortic (valve) stenosis; I48.0 Paroxysmal atrial fibrillation; I12.9 Hypertensive chronic kidney disease with stage 1 through stage 4 chronic kidney disease, or unspecified chronic kidney disease; N18.31 Chronic kidney disease, stage 3a; I25.10 Atherosclerotic heart disease of native coronary artery without angina pectoris; M47.816 Spondylosis without myelopathy or radiculopathy, lumbar region; D64.9 Anemia, unspecified; I95.1 Orthostatic hypotension; R13.10 Dysphagia, unspecified; R33.9 Retention of urine, unspecified; E78.5 Hyperlipidemia, unspecified; G89.29 Other chronic pain; R53.81 Other malaise; Z95.818 Presence of other cardiac implants and grafts; R00.1 Bradycardia, unspecified
CPT/HCPCS: J0696; J1650; J3010

== ENCOUNTER → 2023-12-16 | Outpatient (CLI) | payer MEDICARE, BC ==
[~2023-12-16] MED LIST changes: +ADVIL LIQUI-GE200 M1 PO; +AMOXICILLIN AND1 TA2 PO; +ASPIRIN E.C. 8181 MG; +ATORVASTATIN CA10 MG PO; +BETAPACE AF80 M1 PO; +BETAPACE80 M1 PO; +CALCIUM 600 MG-1 TAB PO; +FISH OIL1 IU PO; +LIDOCAINE PAIN1 EACH TP; +MELATIN 3 MG-11 TAB PO; +NATURE'S BLE1000 MCG PO; +TRAMADOL 50 MG TAB PO; +VITAMIN C500 MG; +WOMEN'S DAILY F1 TAB PO
[2023-12-16 17:11] LABS: URINE APPEARANCE CLEAR (CLEAR); URINE COLOR YELLOW (YELLOW)
[2023-12-16 17:12] LABS: URINE BILIRUBIN NEGATIVE (NEGATIVE); URINE BLOOD TRACE-INTACT (NEGATIVE); URINE GLUCOSE NEGATIVE (NEGATIVE); URINE KETONE NEGATIVE (NEGATIVE); URINE LEUKOCYTE ESTERASE NEGATIVE (NEGATIVE); URINE NITRATE NEGATIVE (NEGATIVE); URINE PROTEIN(semi-quant) NEGATIVE (NEGATIVE); URINE WBC 0-1 /hpf (0-3)
== END ==
LOC: LAB 16:52
PROVIDERS: Family Medicine
DX: R35.0 Frequency of micturition (principal)

== ENCOUNTER 2023-12-27 17:44 | Emergency (ER) | payer MEDICARE, BC ==
[~2023-12-27] VITALS: Wt 45.9 kg
[2023-12-27] MEDS ORDERED: hydrALAZINE 10 MG TAB PO ONE ×2 (18:45→20:15)
[2023-12-27 19:12] LABS: BASO # 0.02 K/mm3 (0.02-0.10); EOS % 1.5 % (1.0-5.0); HEMATOCRIT 36.9 % (37.0-47.0); LYMPH# 2.36 K/mm3 (1.50-4.00); MEAN CELL VOLUME 97 fl (78-100); MEAN CORPUSCULAR HEMOGLOBIN 32 pg (27-31); MEAN CORPUSCULAR HGB CONC 33 g/dL (33-37); MEAN PLATELET VOLUME 8.6 fl (7.4-10.4); MONO # 1.05 K/mm3 (0.20-0.80); NEU # 3.31 K/mm3 (1.40-6.50); PLATELET COUNT 272 K/mm3 (130-400); WHITE BLOOD COUNT 6.9 K/mm3 (4.8-10.8)
[2023-12-27 19:18] LABS: ALBUMIN 3.8 g/dL (3.4-4.8)
[2023-12-27 19:20] LABS: TOTAL PROTEIN 6.4 g/dL (6.2-8.1)
[2023-12-27 19:22] LABS: TOTAL BILIRUBIN 0.3 mg/dL (0.2-1.2)
[2023-12-27] MEDS ORDERED: Potassium Bicarbonate/Citrate 20 MEQ Effervescent TAB PO ONE (19:45)
[2023-12-27 20:33] VITALS: BP 182/84
[2023-12-27] MEDS ORDERED: APRESOLINE 10MG10 MG PO (20:53)
== END 2023-12-27 20:50 | disposition home or self-care (01) ==
LOC: ED 17:44
PROVIDERS: Family Medicine
DX: I16.0 Hypertensive urgency (principal); E87.6 Hypokalemia

== ENCOUNTER 2023-12-31 02:04 | Emergency (ER) | payer MEDICARE, BC ==
[~2023-12-31] VITALS: Ht 152.4 cm; Wt 46.1 kg
[~2023-12-31 02:04] MED LIST changes: +APRESOLINE 10MG10 MG PO
[2023-12-31] MEDS ORDERED: GOOD SENSE ASPI81 M1 PO (02:16)
[2023-12-31] MEDS ORDERED: COLACE100 M1 PO (02:16)
[2023-12-31] MEDS ORDERED: FLORINEF 00.1 MG/TAB PO (02:16)
[2023-12-31] MEDS ORDERED: hydrALAZINE 10 MG TAB PO ONE (02:30)
[2023-12-31 03:03] LABS: BASO # 0.04 K/mm3 (0.02-0.10); EOS # 0.07 K/mm3 (0.04-0.40); EOS % 0.9 % (1.0-5.0); HEMATOCRIT 34.1 % (37.0-47.0); LYMPH# 1.94 K/mm3 (1.50-4.00); MEAN CELL VOLUME 100 fl (78-100); MEAN CORPUSCULAR HEMOGLOBIN 32 pg (27-31); MEAN CORPUSCULAR HGB CONC 32 g/dL (33-37); MEAN PLATELET VOLUME 8.7 fl (7.4-10.4); MONO # 0.95 K/mm3 (0.20-0.80); NEU # 5.16 K/mm3 (1.40-6.50); PLATELET COUNT 258 K/mm3 (130-400); RED BLOOD COUNT 3.42 M/mm3 (4.10-5.30); RED CELL DISTRIBUTION WIDTH 13.3 % (11.5-14.5); WHITE BLOOD COUNT 8.2 K/mm3 (4.8-10.8)
[2023-12-31] MEDS ORDERED: hydrALAZINE 20 MG/ML 1 ML VIAL IM ONE (04:00)
[2023-12-31] MEDS ORDERED: hydrALAZINE 20 MG/ML 1 ML VIAL IV ONE (06:15)
[2023-12-31 07:17] VITALS: BP 151/71
== END 2023-12-31 07:17 | disposition home or self-care (01) ==
LOC: ED 02:04
PROVIDERS: Physician Assistant
DX: K91.840 Postprocedural hemorrhage of a digestive system organ or structure following a digestive system procedure (principal); I10 Essential (primary) hypertension
CPT/HCPCS: J0360

== ENCOUNTER → 2024-01-08 | Outpatient (CLI) | payer MEDICARE, BC ==
[~2024-01-08] MED LIST changes: +COLACE100 M1 PO; +FLORINEF 00.1 MG/TAB PO
== END ==
LOC: LAB 10:20
DX: E78.2 Mixed hyperlipidemia (principal)

== ENCOUNTER → 2024-02-03 | Outpatient (RCR) | payer MEDICARE, BC | END | disposition home or self-care (01) | LOC: PT | DX: M47.896 Other spondylosis, lumbar region (principal) ==

== ENCOUNTER 2024-02-07 10:00 | Outpatient (RCR) | payer MEDICARE, BC | END 2024-03-05 | disposition home or self-care (01) | LOC: PT | DX: M47.896 Other spondylosis, lumbar region (principal) ==

== ENCOUNTER → 2024-06-04 | Outpatient (CLI) | payer MEDICARE, BC | LOC: LAB 13:39 | DX: G31.84 Mild cognitive impairment of uncertain or unknown etiology (principal) ==